=== PATIENT | female | born 1965 | race Caucasian/White ===

== ENCOUNTER 2017-11-04 08:10 | Day surgery (SDC) | payer OTHER ==
[~2017-11-04 08:10] MED LIST: Buffered Lidocaine 0.9% SYRIN* 5 ML/SYR SYRINGE INTRADERM ONE; DiMENhydriNATE IV* 50 MG/ML VIAL IV PUSH PRN; Metoclopramide IV* 5 MG/ML 2 ML VIAL IV SLOW PU ONE; Morphine INJ* 2 MG/ML 1 ML CARPUJECT IV PRN; Naloxone* 0.4 MG/ML 1 ML VIAL IV PRN; PROCHLORPERAZINE INJ 5 MG/ML 2 ML VIAL IV PRN; Scopolamine 1.5 mg* PATCH TRANSDERM PRN
[2017-11-04] MEDS ORDERED: Metoclopramide IV* 5 MG/ML 2 ML VIAL ONE (08:20)
[2017-11-04] MEDS ORDERED: fentaNYL* 50 MCG/ML 2 ML VIAL (100 MCG VIAL) ONE ×2 (09:12→10:57)
[2017-11-04] MEDS ORDERED: Midazolam* 1 MG/ML 5 ML VIAL (5 MG) ONE (09:13)
[2017-11-04] MEDS ORDERED: Bupivacaine 0.25% SDV* 30 ML ONE (09:46)
[2017-11-04] MEDS ORDERED: Ketorolac INJ* 30 MG/ML 1 ML VIAL ONE (10:17)
[2017-11-04] MEDS ORDERED: Ondansetron INJ* 2 MG/ML VIAL ONE (10:17)
[2017-11-04] MEDS ORDERED: Lidocaine 2% PF * 5 ML VIAL ONE (10:17)
[2017-11-04] MEDS ORDERED: Dexamethasone IV* 4 MG/ML 1 ML (4 MG) ONE (10:17)
[2017-11-04] MEDS ORDERED: Propofol* 10 MG/ML 20 ML BTL IV PUSH ONE (10:17)
[2017-11-04] MEDS ORDERED: oxyCODONE/Acetamin 5/325 MG* TAB ONE (10:57)
[2017-11-04] MEDS: oxyCODONE/Acetamin 5/325 MG* TAB PO PRN ×2 (10:58→10:59)
[2017-11-04] MEDS: fentaNYL* 50 MCG/ML 2 ML VIAL (100 MCG VIAL) IV PRN ×4 (11:00→11:25)
[2017-11-04 11:34] VITALS: BP 137/63
--- NOTE | 2017-11-04 12:32 | OP ---
OPERATIVE REPORT: DATE OF OPERATION: 11/04/17 DATE OF : 65 SURGEON: Suman Mchugh MD SENIOR ACCOUNT CLERK: MARCIA Butterfield ANESTHESIOLOGIST: Dr. Nguyen ANESTHESIA: General. PRE-OP DIAGNOSES: 1. Right dorsal radial large wrist soft tissue mass. 2. Right De Quervain's tendinitis. POST-OP DIAGNOSES: 1. Right dorsal radial large wrist soft tissue mass. 2. Right De Quervain's tendinitis. OPERATIVE PROCEDURE: 1. Right excision of deep large soft tissue mass, right dorsal radial wrist measuring 3 cm in diameter. 2. Right De Quervain's release. INDICATIONS: Tiffanie has had a very slowly enlarging mass on the dorsal radial wrist. X-rays were negative. She also had symptoms consistent with De Quervain's tendinitis. She was a bit tingly in the dorsal radial sensory nerve distribution, distal to the mass. We talked about risks and benefits. She wanted it excised. ESTIMATED BLOOD LOSS: 2 mL. COMPLICATIONS: None. FINDINGS: As expected. DESCRIPTION OF PROCEDURE: Tiffanie was seen in the preoperative holding area. The correct site, side, and procedure were identified. We came back to the operating room and the arm was prepped and draped in the usual fashion. A time- out was performed. The arm was exsanguinated with the Esmarch and the tourniquet inflated to 250 mmHg. I made a longitudinal incision extending from the just proximal to the radial styloid down distal towards the base of the thumb. Dissection was carried down. Full thickness flaps were raised right off of the mass. It became apparent quickly that this was not a ganglion. The radial nerve sensory branch was draped right over the mass. This was raised up off of the mass and retracted dorsally. The first dorsal compartment tendons were sitting just lower to the mass. I went ahead and released the sheath right off of the dorsal aspect. The tendons were retracted volarly. The EPL tendon and second dorsal compartment tendons were identified. I then performed a marginal excision of the mass using the tenotomy scissors, it was taken right off of the dorsal radial wrist capsule. It was handed off as a specimen. The capsule of the mass was not violated during the excision. Once the mass was handed off, we irrigated out the wound. The first wrist compartment tendon seemed a bit unstable and so I went ahead and did a rotational flap off utilizing the retinaculum and just tacked that back down to the dorsal lip with a 4- 0 Vicryl suture after I had released the volar flap proximally a bit so I could rotate it back and so it closed with no tension on the tendons. I then irrigated out the wound again. Skin was closed with 4-0 Monocryl and Steri-Strips. The wound was not infiltrated with Marcaine. I did come proximal and infiltrate the proximal subcutaneous tissue with 0.25% plain Marcaine, but the needle was never introduced around the operative area. The wound is then dressed with 4x4 , sterile Webril, and a cock-up wrist splint was applied. She was taken to the recovery room in stable condition. [id number] #: [id number] MAMIE
[2017-11-07] MEDS ORDERED: Scopolamine PATCH Remove* 1 NOTE MISC PATCH OFF ONE (05:51)
== END 2017-11-04 12:02 | disposition home or self-care (01) ==
LOC: OR 08:10
PROVIDERS: ATTEND Orthopaedic Surgery Hand Surgery
DX: D48.1 Neoplasm of uncertain behavior of connective and other soft tissue (principal); M65.4 Radial styloid tenosynovitis [de Quervain]; I10 Essential (primary) hypertension; J45.909 Unspecified asthma, uncomplicated; E03.9 Hypothyroidism, unspecified; M19.90 Unspecified osteoarthritis, unspecified site
CPT/HCPCS: 81025; 88304; A9270-GY; J1100; J1885; J2250; J2405; J2704; J2765; J3010